=== PATIENT | male | born 1945 | race Hispanic/Latino ===

== ENCOUNTER 2018-01-17 08:54 | Day surgery (SDC) | payer OTHER ==
[2018-01-16 15:01] VITALS: BMI 30.4
[2018-01-17 09:24] LABS: BASO # 0.04 K/mm3 (0.0-2.0); BASO % 0.8 % (0.0-3.0); EOS # 0.3 (0.0-0.7); GRAN # 2.4 (1.4-6.5); GRAN % 49.8 % (50.0-68.0); HEMOGLOBIN 13.6 g/dL (14.0-18.0); LYMPH # 1.6 (1.2-3.4); LYMPH % 33.6 % (22.0-35.0); MEAN CELL VOLUME 88.5 fl (80.0-105.0); MEAN CORPUSCULAR HEMOGLOBIN 28.9 pg (25.0-35.0); MEAN CORPUSCULAR HGB CONC 32.6 g/dl (31.0-37.0); MONO # 0.5 (0.1-0.6); MONO % 9.8 % (1.0-6.0); RBC 4.71 10^6/uL (3.5-6.1); RED CELL DISTRIBUTION WIDTH 14.4 % (11.5-14.5); WHITE BLOOD COUNT 4.8 10^3/ul (4.5-11.0)
[2018-01-17 09:37] LABS: INR 1.14 (0.93-1.08); PARTIAL THROMBOPLASTIN TIME 29.5 Seconds (25.1-36.5); PROTHROMBIN TIME 13.1 SECONDS (9.4-12.5)
[2018-01-17 09:38] LABS: BLOOD UREA NITROGEN 15 mg/dL (7-21); CALCIUM 9.9 mg/dL (8.4-10.5); GFR AFRICAN-AMERICAN > 60; GFR NON-AFRICAN AMERICAN > 60
[2018-01-17] MEDS ORDERED: Lidocaine 2% Inj (20ml) ONE (11:35)
[2018-01-17] MEDS ORDERED: HEPARIN SODIUM/NS 2,000 ML IV ONE (11:36)
[2018-01-17] MEDS ORDERED: Midazolam 2 MG/2 ML VIAL ONE ×2 (11:38→12:09)
[2018-01-17] MEDS ORDERED: Sodium Chloride 0.9% 1,000 ML IV SCH (12:45)
[2018-01-17 13:24] VITALS: TEMP 98.2
[2018-01-17 13:27] VITALS: RESP 18
--- NOTE | 2018-01-17 13:45 | CARDCATH ---
PROCEDURE DATE: 01/17/2018 HISTORY: The patient is a 72-year-old male, who presents with an abnormal stress test. He also complains of exertional dyspnea. The patient's past medical history includes multivessel PTCA and stent in the past. He also suffers from hypercholesterolemia. Because of this, cardiac catheterization was recommended. PROCEDURE: Left heart catheterization with coronary arteriography and left ventriculogram. The right femoral artery was cannulated with a 6-Polish sheath. There were no complications. I performed moderate sedation, which included the presence of an independent trained observer that assisted in monitoring the patient's level of consciousness and physiologic status. After administration of Versed and fentanyl, my intra service time was 15 minutes. The findings on catheterization included a left ventricle that contracted normally. Estimated ejection fraction of 55-60%. His coronary anatomy revealed a right dominant circulation. The RCA revealed 2 patent stents, one in the proximal portion, one in the midportion. There was diffuse intimal irregularities throughout the PDA with a 50% stenosis in the midportion. The left main artery was unremarkable. The LAD and diagonal vessels revealed intimal irregularities without critical lesions. The circumflex artery revealed a patent stent in its proximal portion. Angio-Seal was used to close the femoral artery site. The patient tolerated the procedure well. In summary, the procedure revealed normal left ventricular function with an EF of 55-60%. Patent stents in the RCA x2 as well as a patent stent in the circumflex. There was an eccentric 50% stenosis in the midportion of the PDA of the RCA. Given these findings, the patient will need to remain on aspirin indefinitely and continue his statin therapy. If the patient is okay by next week, he may a travel to [facility] as planned. He needs to continue a cardiac risk reduction program. Edgar Elizabeth MD
[2018-01-17 15:40] VITALS: O2SAT 92
--- NOTE | 2018-01-17 17:30 | CARD ---
APPROVED REPORT EKG Measurement Heart [id number] [place] 184P24 [id number] <Conclusion> Sinus rhythm with occasional premature ventricular complexes Inferior infarct, age undetermined Abnormal ECG
[2018-01-17 17:39] VITALS: BP 133/66; PULSE 62
== END 2018-01-17 18:15 | disposition home or self-care (01) ==
LOC: CATH 08:54
PROVIDERS: ATTEND Internal Medicine Cardiovascular Disease
DX: I25.110 Atherosclerotic heart disease of native coronary artery with unstable angina pectoris (principal); I10 Essential (primary) hypertension; E78.00 Pure hypercholesterolemia, unspecified; Z95.5 Presence of coronary angioplasty implant and graft; Z87.891 Personal history of nicotine dependence
CPT/HCPCS: 36415; 80048; 85025; 85610; 85730; 86850; 86900; 93005; 93458; 99152; C1760; C1769; C1887; C2629; J1644; J2250; J3010; J7040 ×2; Q9967

== ENCOUNTER 2019-02-26 05:58 | Day surgery (SDC) | payer OTHER, MEDICARE ==
[2019-02-26 06:04] VITALS: BMI 32.3
[2019-02-26 06:17] VITALS: O2SAT 92
--- NOTE | 2019-02-26 06:18 | ED PDOC ---
Arrival/HPI - General Chief Complaint: Chest Pain Time Seen by Provider: 02/26/19 06:15 - History of Present Illness Narrative History of Present Illness (Text): 02/26/19 06:15 73 yo male, hx of cad s/p stents, presents iwth cp. pt reports left side cp st arted this am after working overnight. currently pain free. h/ o of cad. recent cath 1 yr ago patent RCAx2/circ stent, 50%pda lesion. no fevers no sob no other complaints 02/26/19 06:17 Past Medical History - Infectious Disease Hx of Infectious Diseases: None - Tetanus Immunization Tetanus Immunization: Unknown - Cardiac Hx Pacemaker: No - Pulmonary Hx Asthma: Yes - Neurological Hx Paralysis: No - Hematological/Oncological Hx Blood Transfusions: No - Integumentary Other/Comment: 3 dry crusted brown sores on lips - Musculoskeletal/Rheumatological Hx Musculoskeletal Disorders: No - Psychiatric Hx Emotional Abuse: No Hx Physical Abuse: No Hx Substance Use: No - Surgical History Hx Cardiac Catheterization: Yes - Anesthesia Hx Anesthesia Reactions: No Hx Malignant Hyperthermia: No - Suicidal Assessment Feels Threatened In Home Enviroment: No Family/Social History Family/Social History: Unknown Family HX Smoking Status: Former Smoker Hx Alcohol Use: No Hx Substance Use: No Allergies/Home Meds Allergies/Adverse Reactions: Allergies No Known Allergies Allergy (Verified 02/26/19 06:07) Home Medications: Home Meds Medication Instructions Recorded Confirmed Aspirin [Aspir 81] 325 mg PO DAILY 03/10/14 02/26/19 Review of Systems - Review of Systems Constitutional: Normal Eyes: Normal ENT: Normal Respiratory: Normal Cardiovascular: Chest Pain Gastrointestinal: Normal Genitourinary Male: Normal Musculoskeletal: Normal Skin: Normal Neurological: Normal Endocrine: Normal Hemo/Lymphatic: Normal Psychiatric: Normal Physical Exam Vital Signs Temp Pulse Resp BP Pulse Ox 02/26/19 06:12 98.2 F 58 L 18 125/65 92 L Temperature: Afebrile Blood Pressure: Normal Pulse: Regular Respiratory Rate: Normal Appearance: Positive for: Well-Appearing, Non-Toxic, Comfortable Pain Distress: None Mental Status: Positive for: Alert and Oriented X 3 - Systems Exam Head: Present: Atraumatic, Normocephalic Pupils: Present: PERRL Extroacular Muscles: Present: EOMI Conjunctiva: Present: Normal Mouth: Present: Moist Mucous Membranes Neck: Present: Normal Range of Motion Respiratory/Chest: Present: Clear to Auscultation, Good Air Exchange. No: Respiratory Distress, Accessory Muscle Use Cardiovascular: Present: Regular Rate and Rhythm, Normal S1, S2. No: Murmurs Abdomen: No: Tenderness, Distention, Peritoneal Signs Back: Present: Normal Inspection Upper Extremity: Present: Normal Inspection. No: Cyanosis, Edema Lower Extremity: Present: Normal Inspection. No: Edema Neurological: Present: GCS=15, CN II-XII Intact, Speech Normal Skin: Present: Warm, Dry, Normal Color. No: Rashes Psychiatric: Present: Alert, Oriented x 3, Normal Insight, Normal Concentration Medical Decision Making ED Course and Treatment: 02/26/19 06:17 cp ro acs- ekg sinus carey 58 q inferior, no change from previous. 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 Disposition/Present on Arrival - Present on Arrival Any Indicators Present on Arrival: No History of DVT/PE: No History of Uncontrolled Diabetes: No Urinary Catheter: No History of Decub. Ulcer: No History Surgical Site Infection Following: None - Disposition Have Diagnosis and Disposition been Completed?: Yes Diagnosis: Acute coronary syndrome Disposition: HOSPITALIZED Disposition Time: 15:00 Condition: STABLE
[2019-02-26 06:53] LABS: ALB/GLOB RATIO 1.4 (1.1-1.8); ALBUMIN 4.3 g/dL (3.0-4.8); ALT/SGPT 21 U/L (7-56); AST/SGOT 32 U/L (17-59); BLOOD UREA NITROGEN 18 mg/dL (7-21); CALCIUM 9.1 mg/dL (8.4-10.5); GFR NON-AFRICAN AMERICAN > 60
[2019-02-26 06:55] LABS: BASO # 0.03 K/mm3 (0.0-2.0); BASO % 0.5 % (0.0-3.0); EOS # 0.4 (0.0-0.7); EOS % 7.8 % (1.5-5.0); HEMOGLOBIN 13.7 g/dL (14.0-18.0); LYMPH # 2.2 (1.2-3.4); LYMPH % 40.3 % (22.0-35.0); MEAN CELL VOLUME 86.5 fl (80.0-105.0); MEAN CORPUSCULAR HEMOGLOBIN 28.4 pg (25.0-35.0); MEAN CORPUSCULAR HGB CONC 32.8 g/dl (31.0-37.0); MEAN PLATELET VOLUME 10.9 fl (7.0-11.0); MONO # 0.4 (0.1-0.6); MONO % 7.2 % (1.0-6.0); RBC 4.83 10^6/uL (3.5-6.1); RED CELL DISTRIBUTION WIDTH 13.7 % (11.5-14.5); WHITE BLOOD COUNT 5.5 10^3/uL (4.5-11.0)
[2019-02-26 07:03] LABS: TROPONIN I < 0.01 ng/mL
[2019-02-26 07:06] LABS: INR 1.09; PARTIAL THROMBOPLASTIN TIME 30.2 Seconds (26.9-38.3); PROTHROMBIN TIME 12.3 SECONDS (9.4-12.5)
[2019-02-26] MEDS ORDERED: Lidocaine PF 2% (5 ml) Inj (For Cardiac Arrhy) ONE (08:13)
[2019-02-26] MEDS ORDERED: Phenylephrine 10 mg/ml Inj ONE (08:13)
[2019-02-26] MEDS ORDERED: Iodixanol 320 MG/ML 200 ML BOTTLE IV ONE (08:14)
[2019-02-26] MEDS ORDERED: Iohexol 350mgl/ml 50 ML ONE (08:14)
[2019-02-26] MEDS ORDERED: Iodixanol 320 MG/ML 100 ML BOTTLE IV ONE (08:14)
[2019-02-26] MEDS ORDERED: Nitroglycerin 50mg in D5W 0 MG/0 ML BOTTLE IV ONE (08:14)
[2019-02-26] MEDS ORDERED: Midazolam 2 MG/2 ML VIAL ONE ×2 (08:39→08:47)
[2019-02-26] MEDS ORDERED: Sodium Chloride 0.9% 1,000 ML IV SCH (09:15)
--- NOTE | 2019-02-26 09:26 | CARD ---
APPROVED REPORT Date of service: 02/26/2019 EKG Measurement Heart [id number] [place] [id number] <Conclusion> Sinus bradycardia Inferior infarct, age undetermined Abnormal ECG
--- NOTE | 2019-02-26 12:21 | RAD ---
Date of service: 02/26/2019 HISTORY: cp COMPARISON: 02/16/2014 TECHNIQUE: 1 view obtained. FINDINGS: LUNGS: No active pulmonary disease. PLEURA: No significant pleural effusion identified, no pneumothorax apparent. CARDIOVASCULAR: Aortic calcification Normal cardiac size. No pulmonary vascular congestion. OSSEOUS STRUCTURES: No significant abnormalities. VISUALIZED UPPER ABDOMEN: Normal. OTHER FINDINGS: None. IMPRESSION: No active disease.
[2019-02-26 14:21] VITALS: RESP 18
--- NOTE | 2019-02-26 14:45 | CARDCATH ---
PROCEDURE DATE: 02/26/2019 PROCEDURES: 1. Left heart catheterization with coronary arteriography and left ventriculogram. HISTORY: The patient is a 73-year-old male who presents with an abnormal stress test. The patient's past medical history includes hypercholesterolemia as well as borderline diabetes mellitus in which he stopped taking any medications for questionable reasons. He is on aspirin daily. Because of his risk factors, documented coronary disease, and an abnormal stress test, cardiac catheterization was recommended. The right femoral artery was cannulated with a 6-Urdu sheath. There were no complications. I performed moderate sedation which included the presence of an independent trained observer that assisted in monitoring the patient's level of consciousness and physiologic status. After administration of Versed and fentanyl, my intra service time was 30 minutes. The findings on catheterization revealed a left ventricle that contracted normally. Estimated ejection fraction was 60%. His coronary anatomy revealed a right-dominant circulation. The RCA revealed a patent stent in its proximal portion and the midportion. There are intimal irregularities in the PDA including a 50% stenosis in the midportion which is unchanged from his previous catheterization. His left main artery is unremarkable. The LAD and diagonal vessels revealed mild intimal irregularities without critical lesions. Circumflex artery revealed a patent stent in its proximal portion. Angio-Seal was used to close the femoral artery site. The patient tolerated the procedure well. In summary, the procedure revealed two patent stent in the RCA with a 50% stenosis in the PDA. Patent stent in the proximal circumflex artery. Normal LV function. Given these findings, the patient's treatment will be continued medical therapy. He needs to continue his aspirin, started on statin therapy as well as careful monitoring of his glucose. I have discussed this with the patient's brother, his as well as the patient himself. They will follow up with Dr. Soares on Saturday for monitoring of the cholesterol as well as well as his glucose. Edgar Elizabeth MD
[2019-02-26 16:40] VITALS: BP 124/70; PULSE 68; TEMP 98.2
== END 2019-02-26 16:35 | disposition home or self-care (01) ==
LOC: ED 05:58 → CATH 07:15 → 2RSO 09:28 → CATH 16:35
PROVIDERS: ATTEND Internal Medicine Cardiovascular Disease
DX: I25.10 Atherosclerotic heart disease of native coronary artery without angina pectoris (principal); I25.2 Old myocardial infarction; E78.00 Pure hypercholesterolemia, unspecified; E11.9 Type 2 diabetes mellitus without complications; J45.909 Unspecified asthma, uncomplicated; Z79.82 Long term (current) use of aspirin; Z87.891 Personal history of nicotine dependence; Z95.5 Presence of coronary angioplasty implant and graft; R94.39 Abnormal result of other cardiovascular function study
CPT/HCPCS: 71045; 80053; 82550; 83615; 83735; 84484; 85025; 85610; 85730; 93005; 93458; 99152; 99153; 99285; C1760; C1769; C2629; J1644; J2250; J3010; J7030; J7040; Q9966